=== PATIENT | male | born 1965 | race Caucasian/White ===

== ENCOUNTER 2023-01-07 09:05 | Outpatient (CLI) | payer OTHER, SELFPAY | END 2023-01-07 09:06 | disposition home or self-care (01) | PROVIDERS: Visit Provider Family Medicine | DX: Z00.00 Encounter for general adult medical examination without abnormal findings (principal); E78.5 Hyperlipidemia, unspecified; E66.9 Obesity, unspecified; Z12.5 Encounter for screening for malignant neoplasm of prostate | CPT/HCPCS: 80053; 80061; 84153 ==

== ENCOUNTER 2024-03-16 09:14 | Outpatient (CLI) | payer OTHER, SELFPAY | END 2024-03-16 09:15 | disposition home or self-care (01) | PROVIDERS: PCP Family Medicine; Visit Provider Family Medicine | DX: E78.5 Hyperlipidemia, unspecified (principal); Z13.228 Encounter for screening for other metabolic disorders; Z12.5 Encounter for screening for malignant neoplasm of prostate; Z11.59 Encounter for screening for other viral diseases | CPT/HCPCS: 80053; 80061; 86803; G0103 ==

== ENCOUNTER 2024-06-27 06:48 | Outpatient (CLI) | payer OTHER, SELFPAY ==
--- NOTE | 2024-06-27 08:23 | W.ANESCHARGE ---
Anesthesia Charges Start Date/Time Anesthesia Start Date: 06/27/24 Anesthesia Start Time: 07:38 Stop Date/Time Anesthesia Stop Date: 06/27/24 Anesthesia Stop Time: 08:19
== END 2024-06-27 06:49 | disposition home or self-care (01) ==
PROVIDERS: PCP Family Medicine; Visit Provider Surgery
DX: Z12.11 Encounter for screening for malignant neoplasm of colon (principal); D12.6 Benign neoplasm of colon, unspecified; D12.3 Benign neoplasm of transverse colon; D12.8 Benign neoplasm of rectum; K57.30 Diverticulosis of large intestine without perforation or abscess without bleeding
CPT/HCPCS: 00811; 45385; 88305; J2704

== ENCOUNTER 2024-09-01 16:33 | Outpatient (CLI) | payer OTHER, SELFPAY | END 2024-09-01 16:34 | disposition home or self-care (01) | LOC: LKVREF 16:34 | PROVIDERS: PCP Family Medicine; Visit Provider Family Medicine | DX: R79.89 Other specified abnormal findings of blood chemistry (principal); E78.5 Hyperlipidemia, unspecified; R10.9 Unspecified abdominal pain | CPT/HCPCS: 80076 ==